=== PATIENT | female | born 1950 | race Caucasian/White ===

== ENCOUNTER 2017-01-08 23:03 | Inpatient (IN) | payer OTHER ==
[~2017-01-08] VITALS: Ht 160 cm; Wt 68.0 kg
[~2017-01-08 23:03] MED LIST: ALLE12TA PO; TRAM50 PO; ZOCO40TA PO
[2017-01-08 23:04] VITALS: BP 230/106; PULSE 70; RESP 20; TEMP 97.9; O2SAT 96
[2017-01-09] MEDS ORDERED: FLUT1INH3 INH (00:37)
[2017-01-09] MEDS ORDERED: GLUCTAB PO (00:37)
[2017-01-09] MEDS ORDERED: MONT5CHW2 CHEW (00:37)
[2017-01-09] MEDS ORDERED: CLAR10CA3 PO (00:37)
[2017-01-09] MEDS ORDERED: VITA2000 PO (00:37)
[2017-01-09] MEDS ORDERED: VENTAER INH (00:37)
--- NOTE | 2017-01-09 01:19 | PD ---
HPI Chief Complaint: Flank/Kidney Pain Time Seen by Provider: 01:16 Travel History International Travel<30 days: No Contact w/Intl Traveler<30days: No Traveled to known affect area: No History of Present Illness HPI 66-year-old female presents to the emergency department for complaint of 2 days of right flank pain radiating to the right lower quadrant associated dysuria frequency urgency and nausea. Patient rates pain 9/10 intensity. Patient denies vomiting. Patient's had no fever chills. Patient has been using Azo without symptomatically. Patient also had similar type flank pain 1 week ago but was also spontaneously. Family history of kidney stents. Patient denies any previous history of kidney stones. Patient is unable to identify exacerbating or alleviating factors. PFSH Past Medical History Narrative Medical Diabetes asthma dyslipidemia and decreased hearing tubal ligation tonsillectomy rhinoplasty; nursing notes reviewed Asthma: Yes High Cholesterol: Yes Diabetes: Yes Patient Takes Glucophage: Yes Diminished Hearing: Yes (HEARING AIDES) Menopausal: Yes Tubal Ligation: Yes Past Surgical History Tonsillectomy: Yes Other Surgery: Yes (RHINOPLASTY) Social History Alcohol Use: No Tobacco Use: No Substance Use: No Allergies-Medications (Allergen,Severity, Reaction): Coded Allergies: Sulfa (Sulfonamide Antibiotics) (Unverified Allergy, Severe, 01/08/17) diatrizoate meglumine (Unverified Allergy, Severe, TROUBLE BREATHING, SWELLING/REDNESS AT IV SIGHT, 01/08/17) gadobenic acid (Unverified Allergy, Severe, TROUBLE BREATHING, SWELLING/ REDNESS AT IV SIGHT, 01/08/17) gadodiamide (Unverified Allergy, Severe, TROUBLE BREATHING, SWELLING/ REDNESS AT IV SIGHT, 01/08/17) gadoteridol (Unverified Allergy, Severe, TROUBLE BREATHING, SWELLING/ REDNESS AT IV SIGHT, 01/08/17) iodixanol (Unverified Allergy, Severe, TROUBLE BREATHING, SWELLING/ REDNESS AT IV SIGHT, 01/08/17) iohexol (Unverified Allergy, Severe, TROUBLE BREATHING, SWELLING/REDNESS AT IV SIGHT, 01/08/17) lisinopril (Verified Allergy, Severe, Shortness of Breath, 01/09/17) povidone-iodine (Unverified Allergy, Severe, SWELLING AND ITCHING, 01/08/17 ) codeine (Unverified Allergy, Mild, N/V, 01/08/17) latex (Unverified Adverse Reaction, Severe, Anaphylaxis, 01/08/17) Uncoded Allergies: STATIN DRUGS (Adverse Reaction, Mild, LEG PAIN, 01/09/17) Reported Meds & Prescriptions Reported Meds & Active Scripts Active Reported Ventolin Hfa 18 GM Inh (Albuterol Sulfate) 90 Mcg/Act Aer 2 Puff INH Q4H PRN Vitamin D3 (Cholecalciferol) 2,000 Unit Cap 2,000 Units PO DAILY Singulair (Montelukast Sodium) 5 Mg Chew 5 Mg CHEW HS Arnuity Ellipta (Fluticasone Furoate (Inhalatio) 100 Mcg/Act Inh 1 Puff INH DAILY Claritin (Loratadine) 10 Mg Cap 10 Mg PO DAILY Glucophage XR (Metformin HCl) 500 Mg Jensen 500 Mg PO DAILY With evening meal Review of Systems Except as stated in HPI: all other systems reviewed are Neg General / Constitutional: No: Fever, Chills HENT: No: Congestion Cardiovascular: No: Chest Pain or Discomfort Gastrointestinal: Positive: Nausea, Abdominal Pain (suprapubic), No: Vomiting, Diarrhea Genitourinary: Positive: Dysuria, Flank Pain Musculoskeletal: No: Myalgias, Arthralgias Skin: No Rash Neurologic: No: Weakness Psychiatric: No: Anxiety Hematologic/Lymphatic: No: Lymph Node Enlargement Physical Exam Narrative GENERAL: Well-developed well-nourished female in acute distress no respiratory distress SKIN: Warm and dry. HEAD: Normocephalic. EYES: No scleral icterus. No injection or drainage. NECK: Supple, trachea midline. No JVD or lymphadenopathy. CARDIOVASCULAR: Regular rate and rhythm without murmurs, gallops, or rubs. RESPIRATORY: Breath sounds equal bilaterally. No accessory muscle use. GASTROINTESTINAL: Abdomen soft, mild suprapubic tenderness to palpation without guarding or rebound, nondistended. MUSCULOSKELETAL: No cyanosis, or edema. BACK: Nontender without obvious deformity. Right-sided CVA tenderness. Data Data Last Documented VS Vital Signs Date Time Temp Pulse Resp B/P (MAP) Pulse Ox O2 Delivery O2 Flow Rate FiO2 01/09/17 00:29 18 01/08/17 23:04 97.9 70 230/106 (147) 96 Orders Orders Complete Blood Count With Diff (01/09/17 01:16) Basic Metabolic Panel (Bmp) (01/09/17 01:16) Urinalysis - C+S If Indicated (01/09/17 01:16) Ct Abd/Pel W/O Iv Contrast (01/09/17 01:16) Ecg Monitoring (01/09/17 01:16) Iv Access Insert/Monitor (01/09/17 01:16) Ketorolac Inj (Toradol Inj) (01/09/17 01:30) Ondansetron Inj (Zofran Inj) (01/09/17 01:30) Sodium Chloride 0.9% Flush (Ns Flush) (01/09/17 01:30) Urine Culture (01/09/17 01:30) Ceftriaxone Inj (Rocephin Inj) (01/09/17 02:45) Admit Order (Ed Use Only) (01/09/17 ) ^ Saline Lock (01/09/17 02:45) Resp Oxygen Leif C Titrat 1-4 L (01/09/17 ) Notify Dr: Other (01/09/17 02:45) Sodium Chloride 0.9% Flush (Ns Flush) (01/09/17 09:00) Sodium Chloride 0.9% Flush (Ns Flush) (01/09/17 02:45) Consult Urology (01/09/17 02:45) Labs Laboratory Tests Test 01/09/17 01:30 White Blood Count 20.0 TH/MM3 Red Blood Count 5.31 MIL/MM3 Hemoglobin 15.8 GM/DL Hematocrit 47.9 % Mean Corpuscular Volume 90.3 FL Mean Corpuscular Hemoglobin 29.7 PG Mean Corpuscular Hemoglobin Concent 32.9 % Red Cell Distribution Width 13.5 % Platelet Count 349 TH/MM3 Mean Platelet Volume 8.1 FL Neutrophils (%) (Auto) 89.6 % Lymphocytes (%) (Auto) 5.8 % Monocytes (%) (Auto) 4.0 % Eosinophils (%) (Auto) 0.1 % Basophils (%) (Auto) 0.5 % Neutrophils # (Auto) 18.0 TH/MM3 Lymphocytes # (Auto) 1.2 TH/MM3 Monocytes # (Auto) 0.8 TH/MM3 Eosinophils # (Auto) 0.0 TH/MM3 Basophils # (Auto) 0.1 TH/MM3 CBC Comment DIFF FINAL Differential Comment Urine Color DARK-BROWN Urine Turbidity HAZY Urine pH 5.5 Urine Specific [place] 1.020 Urine Protein TRACE mg/dL Urine Glucose (UA) NEG mg/dL Urine Ketones NEG mg/dL Urine Occult Blood TRACE Urine Nitrite POS Urine Bilirubin NEG Urine Urobilinogen 2.0 MG/DL Urine Leukocyte Esterase NEG Urine RBC 10 /hpf Urine WBC 1 /hpf Urine Calcium Oxalate Crystals MANY /hpf Urine Mucus FEW /lpf Microscopic Urinalysis Comment CULTURE INDICATED Blood Urea Nitrogen 18 MG/DL Creatinine 0.93 MG/DL Random Glucose 154 MG/DL Calcium Level 10.0 MG/DL Sodium Level 138 MEQ/L Potassium Level 3.9 MEQ/L Chloride Level 102 MEQ/L Carbon Dioxide Level 25.0 MEQ/L Anion Gap 11 MEQ/L Estimat Glomerular Filtration Rate 60 ML/MIN MDM Medical Decision Making Medical Screen Exam Complete: Yes Emergency Medical Condition: Yes Medical Record Reviewed: Yes Interpretation(s) Last Impressions Abdomen/Pelvis CT 01/09/17 0116 Signed Impressions: Service Date/Time: , January 09, 2017 01:40 - CONCLUSION: 1. There is right-sided obstructive uropathy with 3 mm calculus at right ureterovesical junction and mild right-sided hydronephrosis. Nonobstructing left renal calculus. Erickson Finley MD CBC & BMP Diagram 01/09/17 01:30 Calcium Level 10.0 Vital Signs Date Time Temp Pulse Resp B/P (MAP) Pulse Ox O2 Delivery O2 Flow Rate FiO2 01/09/17 00:29 18 01/08/17 23:04 97.9 70 20 230/106 (147) 96 Differential Diagnosis Renal colic pyelonephritis UTI colitis atypical diverticulitis appendicitis Narrative Course IV access obtained specimens collected and sent for resulting patient administered Toradol 30 mg IV and Zofran [address] abdomen and pelvis performed Patient noted to have leukocytosis of 20,000 however afebrile heart rate not elevated respiratory rate not elevated does not meet SIRS criteria at this time Urinalysis noted to have positive nitrites only 1 WBC and no bacteria however culture is indicated possible UTI/risk for obstructive uropathy with pyelonephritis therefore blood cultures obtained patient administered Rocephin 1 g IV piggyback Patient's case discussed with on-call urology recommends admission will see patient in consultation Patient's case discussed with on-call [facility] request patient be admitted to Dr. Parker Patient resting comfortably voicing no concerns or complaints patient also administered IV fluids Sepsis Criteria SIRS Criteria (2 or more): WBC > 68897, < 4000 or > 10% bands Physician Communication Physician Communication Patient discussed with Dr. Cantu on-call urology; patient's case discussed with on-call Dr. Au request patient to be admitted to Dr. Parker Diagnosis Primary Impression: Obstructive uropathy Additional Impressions: Abnormal urinalysis Diabetes Admitting Information Admitting Physician Requests: Observation Enid Carrillo MD Jan 09, 2017 01:19
[2017-01-09] MEDS ORDERED: KETOROLAC TROMETHAMINE 30 MG/ML (IVP) VIAL IVP ONE (01:30)
[2017-01-09] MEDS ORDERED: SODIUM CHLORIDE 0.9% FLUSH 10 ML FLUSH IVF PRN ×2 (01:30→02:45)
[2017-01-09] MEDS ORDERED: ONDANSETRON HCL 4 MG/2 ML VIAL IVP ONE (01:30)
[2017-01-09 01:45] LABS: BLOOD, URINE TRACE (NEG); CALCIUM OXALATE CRYSTALS,URINE MANY /hpf; COMMENT (UR) CULTURE INDICATED; CULTURE IF INDICATED CULTURE INDICATED; GLUCOSE,URINE NEG (NEG); KETONE, URINE NEG (NEG); MUCUS URINE FEW /lpf (OCC); NITRITE,URINE POS (NEG); PH, URINE 5.5 (5.0-8.5)
[2017-01-09 01:46] LABS: URINE COLOR DARK-BROWN (YELLW/STRAW)
[2017-01-09 01:51] LABS: BASOPHIL # 0.1 TH/MM3 (0-0.2); BASOPHIL % 0.5 % (0.0-2.0); EOSINOPHIL % 0.1 % (0.0-4.0); HEMATOCRIT 47.9 % (35.0-46.0); HEMO FLAGS DIFF FINAL; LYMPH % 5.8 % (9.0-44.0); LYMPHOCYTE # 1.2 TH/MM3 (1.0-4.8); MEAN CELL VOLUME 90.3 FL (80.0-100.0); MEAN CORPUSCULAR HEMOGLOBIN 29.7 PG (27.0-34.0); MEAN CORPUSCULAR HGB CONC 32.9 % (32.0-36.0); NEUT % 89.6 % (16.0-70.0); PLATELET COUNT 349 TH/MM3 (150-450); RED BLOOD COUNT 5.31 MIL/MM3 (4.00-5.30); RED CELL DISTRIBUTION WIDTH 13.5 % (11.6-17.2)
--- NOTE | 2017-01-09 01:59 | RADRPT ---
EXAM DATE/TIME: 01/09/2017 01:40 [facility] COMPARISON: No previous studies available for comparison. INDICATIONS : Right flank pain and dysuria. ORAL CONTRAST: No oral contrast ingested. RADIATION DOSE: 8.49 CTDIvol (mGy) MEDICAL HISTORY : Diabetes. SURGICAL HISTORY : Tubal ligation. ENCOUNTER: Initial ACUITY: 1 day PAIN SCALE: 7/10 LOCATION: Right flank TECHNIQUE: Volumetric scanning of the abdomen and pelvis was performed. Using automated exposure control and ad justment of the mA and/or kV according to patient size, radiation dose was kept as low as reasonably achievable to obtain optimal diagnostic quality images. DICOM format image data is available electro nically for review and comparison. FINDINGS: There is a small approximately 3 mm calculus at the right ureterovesical junction with right-sided ob structive uropathy, mild hydronephrosis and ureteral dilatation. There is a nonobstructing calculus m id pole left kidney measuring about 8 mm x 4 mm. Lung bases demonstrate linear atelectasis or scarring. Mild fatty liver. Spleen, adrenals and pancrea s unremarkable. No calcified gallstones or biliary ductal dilatation. No free fluid. No bowel obstruction. No adenopathy. CONCLUSION: 1. There is right-sided obstructive uropathy with 3 mm calculus at right ureterovesical junction and mild right-sided hydronephrosis. Nonobstructing left renal calculus. Erickson Finley MD on January 09, 2017 at 1:52 Board Certified Radiologist. This report was verified electronically.
[2017-01-09 02:08] LABS: POTASSIUM 3.9 MEQ/L (3.5-5.1)
[2017-01-09] MEDS ORDERED: cefTRIAXone INJ 1,000 MG in SODIUM CHLORIDE 0.9% INJ 100 ML IV ONE (02:45)
[2017-01-09 03:02] VITALS: BP 136/72
[2017-01-09] MEDS ORDERED: SODIUM CHLOR 0.9% 1000 ML INJ 1,000 ML IV SCH (04:15)
[2017-01-09 07:00] VITALS: BP 145/72; PULSE 80; RESP 16; TEMP 97.8; O2SAT 95
[2017-01-09] MEDS ORDERED: LORATADINE 10 MG TAB PO SCH (09:00)
[2017-01-09] MEDS ORDERED: ACETAMINOPHEN 325 MG TAB PO PRN (09:00)
[2017-01-09] MEDS ORDERED: FLUTICASONE FUROATE INH SCH (09:00)
[2017-01-09] MEDS ORDERED: ONDANSETRON HCL 4 MG/2 ML VIAL IV PRN (09:00)
[2017-01-09] MEDS ORDERED: SODIUM CHLORIDE 0.9% FLUSH 10 ML FLUSH IV FLUSH SCH (09:00)
[2017-01-09] MEDS ORDERED: ALBUTEROL SULFATE 90 MCG/ACT HFA 8 GM INHALER INH PRN (09:00)
--- NOTE | 2017-01-09 09:40 | PD.CONS ---
HPI Service Urology Consult Requested By Primary Care Physician Amina Aquino MD Diagnosis: History of Present Illness 66-year-old female presents with acute onset of right sided flank pain associated with some nausea. CT scan emergency room demonstrated a 3 mm right UVJ stone with moderate right hydronephrosis with some perinephric stranding. She denies any fever or chills. She denies any prior history of stones. Furthermore the CAT scan also demonstrates a 8 mm nonobstructing left renal stone. Her medical history includes diabetes mellitus. Review of Systems ROS Limitations: Clinical Condition Constitutional: DENIES: Diaphoretic episodes Endocrine: DENIES: Abnorml menstrual pattern Eyes: DENIES: Blurred vision Ears, nose, mouth, throat: DENIES: Tinnitus Respiratory: DENIES: Apneas Cardiovascular: DENIES: Chest pain Gastrointestinal: COMPLAINS OF: Nausea Genitourinary: DENIES: Abnormal vaginal bleeding Musculoskeletal: DENIES: Joint pain Integumentary: DENIES: Abnormal pigmentation Hematologic/lymphatic: DENIES: Bruising Immunologic/allergic: DENIES: Eczema Neurologic: DENIES: Abnormal gait Psychiatric: DENIES: Anxiety Past Family Social History Past Medical History Diabetes mellitus Past Surgical History Tubal ligation Allergies: Coded Allergies: Sulfa (Sulfonamide Antibiotics) (Unverified Allergy, Severe, 01/08/17) diatrizoate meglumine (Unverified Allergy, Severe, TROUBLE BREATHING, SWELLING/REDNESS AT IV SIGHT, 01/08/17) gadobenic acid (Unverified Allergy, Severe, TROUBLE BREATHING, SWELLING/ REDNESS AT IV SIGHT, 01/08/17) gadodiamide (Unverified Allergy, Severe, TROUBLE BREATHING, SWELLING/ REDNESS AT IV SIGHT, 01/08/17) gadoteridol (Unverified Allergy, Severe, TROUBLE BREATHING, SWELLING/ REDNESS AT IV SIGHT, 01/08/17) iodixanol (Unverified Allergy, Severe, TROUBLE BREATHING, SWELLING/ REDNESS AT IV SIGHT, 01/08/17) iohexol (Unverified Allergy, Severe, TROUBLE BREATHING, SWELLING/REDNESS AT IV SIGHT, 01/08/17) lisinopril (Verified Allergy, Severe, Shortness of Breath, 01/09/17) povidone-iodine (Unverified Allergy, Severe, SWELLING AND ITCHING, 01/08/17 ) codeine (Unverified Allergy, Mild, N/V, 01/08/17) latex (Unverified Adverse Reaction, Severe, Anaphylaxis, 01/08/17) Uncoded Allergies: STATIN DRUGS (Adverse Reaction, Mild, LEG PAIN, 01/09/17) Family History Daughter with history of stones Social History Presently denies smoking or drinking. No history of illicit drug use is noted. Physical Exam Vital Signs Date Time Temp Pulse Resp B/P (MAP) Pulse Ox O2 Delivery O2 Flow Rate FiO2 01/09/17 08:13 21 01/09/17 07:00 80 16 01/09/17 07:00 97.8 80 16 145/72 (96) 95 Room Air 01/09/17 03:45 21 01/09/17 03:02 136/72 (93) 01/09/17 00:29 18 01/08/17 23:04 97.9 70 20 230/106 (147) 96 Physical Exam GENERAL: This is a well-nourished, well-developed patient, in no apparent distress. SKIN: No rashes, ecchymoses or lesions. Cool and dry. HEAD: Atraumatic. Normocephalic. No temporal or scalp tenderness. EYES: Pupils equal round and reactive. Extraocular motions intact. No scleral icterus. No injection or drainage. ENT: Nose without bleeding, purulent drainage or septal hematoma. Throat without erythema, tonsillar hypertrophy or exudate. Uvula midline. Airway patent. NECK: Trachea midline. No JVD or lymphadenopathy. Supple, nontender, no meningeal signs. CARDIOVASCULAR: Regular rate and rhythm without murmurs, gallops, or rubs. RESPIRATORY: Clear to auscultation. Breath sounds equal bilaterally. No wheezes , rales, or rhonchi. GASTROINTESTINAL: Abdomen soft, non-tender, nondistended. No hepato-splenomegaly , or palpable masses. No guarding. Mild right CVA tenderness is noted. GENITOURINARY: Normal female external genitalia MUSCULOSKELETAL: Extremities without clubbing, cyanosis, or edema. No joint tenderness, effusion, or edema noted. No calf tenderness. Negative Homans sign bilaterally. NEUROLOGICAL: Awake and alert. Cranial nerves II through XII intact. Motor and sensory grossly within normal limits. Five out of 5 muscle strength in all muscle groups. Normal speech. Laboratory Tests Test 01/09/17 01:30 White Blood Count 20.0 Red Blood Count 5.31 Hemoglobin 15.8 Hematocrit 47.9 Mean Corpuscular Volume 90.3 Mean Corpuscular Hemoglobin 29.7 Mean Corpuscular Hemoglobin Concent 32.9 Red Cell Distribution Width 13.5 Platelet Count 349 Mean Platelet Volume 8.1 Neutrophils (%) (Auto) 89.6 Lymphocytes (%) (Auto) 5.8 Monocytes (%) (Auto) 4.0 Eosinophils (%) (Auto) 0.1 Basophils (%) (Auto) 0.5 Neutrophils # (Auto) 18.0 Lymphocytes # (Auto) 1.2 Monocytes # (Auto) 0.8 Eosinophils # (Auto) 0.0 Basophils # (Auto) 0.1 CBC Comment DIFF FINAL Differential Comment Urine Color DARK-BROWN Urine Turbidity HAZY Urine pH 5.5 Urine Specific [place] 1.020 Urine Protein TRACE Urine Glucose (UA) NEG Urine Ketones NEG Urine Occult Blood TRACE Urine Nitrite POS Urine Bilirubin NEG Urine Urobilinogen 2.0 Urine Leukocyte Esterase NEG Urine RBC 10 Urine WBC 1 Urine Calcium Oxalate Crystals MANY Urine Mucus FEW Microscopic Urinalysis Comment CULTURE INDICATED Blood Urea Nitrogen 18 Creatinine 0.93 Random Glucose 154 Calcium Level 10.0 Sodium Level 138 Potassium Level 3.9 Chloride Level 102 Carbon Dioxide Level 25.0 Anion Gap 11 Estimat Glomerular Filtration Rate 60 Date/Time Source Procedure Growth Status 01/09/17 03:15 Blood Peripheral Aerobic Blood Culture Pending Received 01/09/17 03:15 Blood Peripheral Anaerobic Blood Culture Pending Received 01/09/17 01:30 Urine Random Urine Urine Culture Pending Worksheet Result Diagram: 01/09/17 0130 01/09/17 0130 Imaging Last Impressions Abdomen/Pelvis CT 01/09/17 0116 Signed Impressions: Service Date/Time: December 01:40 - CONCLUSION: 1. There is right-sided obstructive uropathy with 3 mm calculus at right ureterovesical junction and mild right-sided hydronephrosis. Nonobstructing left renal calculus. Erickson Finley MD Assessment and Plan Assessment and Plan 66-year-old female with 3 mm right UVJ calculus causing mild to moderate hydronephrosis with some mild perinephric stranding. Patient presently comfortable without nausea and pain is controlled. Recommend discharge at this time. Patient will need antibiotics, pain medicine and antiemetics at the time of discharge Patient will need a follow-up in the office in a few weeks and to be scheduled for treatment of her left renal calculus which is 8 x 4 mm in size. Thank you for the consult allow me to participate in care of this patient. Ike Cantu DO Jan 09, 2017 09:40
[2017-01-09] MEDS ORDERED: KETO10 PO ×2 (09:52→10:16)
[2017-01-09] MEDS ORDERED: LEVO750T3 PO ×2 (09:52→10:00)
--- NOTE | 2017-01-09 10:19 | HHI.HP ---
HPI Service [facility] Hospitalists Primary Care Physician Amina Aquino MD Admission Diagnosis obstructive uropathy w/ uti; DM Chief Complaint: Right flank pain Travel History International Travel<30 Days: No Contact w/Intl Traveler <30 Da: No Traveled to Known Affected Are: No History of Present Illness Ms. Valdez is a pleasant 66 y/o female with diabetes mellitus who presented to the ED last night with worsening right flank pain and some nausea. She states that she started having some urinary symptoms with urgency and frequency and malodorous urine, around 3-4 days ago and started using AZO. Then yesterday evening she began having worsening right sided flank pain with radiation into the right groin area and associated with some nausea. This prompted her to go to the ED for further evaluation. Labs at admission noted an elevated WBC count of 20,000. CT scan Abd/pelvis revealed a 3 mm right UVJ stone with moderate right hydronephrosis with some perinephric stranding and an 8 mm nonobstructing left renal stone. She denies any fever or chills. She denies any prior history of kidney stones. She was given IVF, Toradol IV and Ceftriaxone in the ED. Pt overall feels better today. She was seen by Urology this morning who has cleared the patient for discharge with antibiotics, pain medication and antiemetics. Pt was recommended to followup with Dr. Cantu in 1 week for re-evaluation. Review of Systems Constitutional: DENIES: Fever, Chills, Night Sweats Respiratory: DENIES: Shortness of breath Cardiovascular: DENIES: Chest pain, Lower Extremity Edema Gastrointestinal: COMPLAINS OF: Abdominal pain, Nausea, DENIES: Constipation, Diarrhea, Vomiting Genitourinary: COMPLAINS OF: Urinary frequency, Urgency, Dysuria Musculoskeletal: COMPLAINS OF: Back pain Integumentary: DENIES: Rash Neurologic: DENIES: Headache Psychiatric: DENIES: Confusion Past Family Social History Past Medical History Diabetes mellitus Asthma Allergies Dyslipidemia Decreased hearing Past Surgical History Tubal ligation Tonsillectomy Rhinoplasty Reported Medications Ventolin Hfa 18 GM Inh (Albuterol Sulfate) 90 Mcg/Act Aer 2 Puff INH Q4H PRN Vitamin D3 (Cholecalciferol) 2,000 Unit Cap 2,000 Units PO DAILY Singulair (Montelukast Sodium) 5 Mg Chew 5 Mg CHEW HS Arnuity Ellipta (Fluticasone Furoate (Inhalatio) 100 Mcg/Act Inh 1 Puff INH DAILY Claritin (Loratadine) 10 Mg Cap 10 Mg PO DAILY Glucophage XR (Metformin HCl) 500 Mg Jensen 500 Mg PO DAILY With evening meal Allergies: Coded Allergies: Sulfa (Sulfonamide Antibiotics) (Unverified Allergy, Severe, 01/08/17) diatrizoate meglumine (Unverified Allergy, Severe, TROUBLE BREATHING, SWELLING/REDNESS AT IV SIGHT, 01/08/17) gadobenic acid (Unverified Allergy, Severe, TROUBLE BREATHING, SWELLING/ REDNESS AT IV SIGHT, 01/08/17) gadodiamide (Unverified Allergy, Severe, TROUBLE BREATHING, SWELLING/ REDNESS AT IV SIGHT, 01/08/17) gadoteridol (Unverified Allergy, Severe, TROUBLE BREATHING, SWELLING/ REDNESS AT IV SIGHT, 01/08/17) iodixanol (Unverified Allergy, Severe, TROUBLE BREATHING, SWELLING/ REDNESS AT IV SIGHT, 01/08/17) iohexol (Unverified Allergy, Severe, TROUBLE BREATHING, SWELLING/REDNESS AT IV SIGHT, 01/08/17) lisinopril (Verified Allergy, Severe, Shortness of Breath, 01/09/17) povidone-iodine (Unverified Allergy, Severe, SWELLING AND ITCHING, 01/08/17 ) codeine (Unverified Allergy, Mild, N/V, 01/08/17) latex (Unverified Adverse Reaction, Severe, Anaphylaxis, 01/08/17) Uncoded Allergies: STATIN DRUGS (Adverse Reaction, Mild, LEG PAIN, 01/09/17) Family History Noncontributory Social History Denies any alcohol, tobacco or illicit drug use Physical Exam Vital Signs Vital Signs Date Time Temp Pulse Resp B/P (MAP) Pulse Ox O2 Delivery O2 Flow Rate FiO2 01/09/17 08:13 21 01/09/17 07:00 80 16 01/09/17 07:00 97.8 80 16 145/72 (96) 95 Room Air 01/09/17 03:45 21 01/09/17 03:02 136/72 (93) 01/09/17 00:29 18 01/08/17 23:04 97.9 70 20 230/106 (147) 96 Physical Exam GENERAL: This is a well-nourished, well-developed patient, in no apparent distress. HEENT: Atraumatic. Normocephalic. No temporal or scalp tenderness. No scleral icterus. Airway patent. NECK: Trachea midline, supple, nontender. CARDIO: Regular. RESP: CTA bilaterally. No wheezes, rales, or rhonchi. ABD: +BS, soft, non-tender, nondistended. Mild right flank CVA tenderness EXT: Extremities without clubbing, cyanosis, or edema. NEURO: Awake and alert. Motor and sensory grossly within normal limits. Normal speech. Laboratory Laboratory Tests Test 01/09/17 01:30 White Blood Count 20.0 Red Blood Count 5.31 Hemoglobin 15.8 Hematocrit 47.9 Mean Corpuscular Volume 90.3 Mean Corpuscular Hemoglobin 29.7 Mean Corpuscular Hemoglobin Concent 32.9 Red Cell Distribution Width 13.5 Platelet Count 349 Mean Platelet Volume 8.1 Neutrophils (%) (Auto) 89.6 Lymphocytes (%) (Auto) 5.8 Monocytes (%) (Auto) 4.0 Eosinophils (%) (Auto) 0.1 Basophils (%) (Auto) 0.5 Neutrophils # (Auto) 18.0 Lymphocytes # (Auto) 1.2 Monocytes # (Auto) 0.8 Eosinophils # (Auto) 0.0 Basophils # (Auto) 0.1 CBC Comment DIFF FINAL Differential Comment Urine Color DARK-BROWN Urine Turbidity HAZY Urine pH 5.5 Urine Specific [place] 1.020 Urine Protein TRACE Urine Glucose (UA) NEG Urine Ketones NEG Urine Occult Blood TRACE Urine Nitrite POS Urine Bilirubin NEG Urine Urobilinogen 2.0 Urine Leukocyte Esterase NEG Urine RBC 10 Urine WBC 1 Urine Calcium Oxalate Crystals MANY Urine Mucus FEW Microscopic Urinalysis Comment CULTURE INDICATED Blood Urea Nitrogen 18 Creatinine 0.93 Random Glucose 154 Calcium Level 10.0 Sodium Level 138 Potassium Level 3.9 Chloride Level 102 Carbon Dioxide Level 25.0 Anion Gap 11 Estimat Glomerular Filtration Rate 60 Date/Time Source Procedure Growth Status 01/09/17 03:15 Blood Peripheral Aerobic Blood Culture Pending Received 01/09/17 03:15 Blood Peripheral Anaerobic Blood Culture Pending Received 01/09/17 01:30 Urine Random Urine Urine Culture Pending Worksheet Result Diagram: 01/09/17 0130 01/09/17 0130 Imaging Last Impressions Abdomen/Pelvis CT 01/09/17 0116 Signed Impressions: Service Date/Time: December 01:40 - CONCLUSION: 1. There is right-sided obstructive uropathy with 3 mm calculus at right ureterovesical junction and mild right-sided hydronephrosis. Nonobstructing left renal calculus. Erickson Finley MD Septic Shock Reassessment Heart: Regular rate and rhythm Lungs: Clear Skin: Warm Caprini VTE Risk Assessment Caprini VTE Risk Assessment: Mod/High Risk (score >= 2) Caprini Risk Assessment Model Point Value = 1 Point Value = 2 Point Value = 3 Point Value = 5 Age 41-60 Minor surgery BMI > 25 kg/m2 Swollen legs Varicose veins or History of unexplained or recurrent spontaneous Oral contraceptives or hormone replacement Sepsis (< 1 month) Serious lung disease, including pneumonia (< 1 month) Abnormal pulmonary function Acute myocardial infarction Congestive heart failure (< 1 month) History of inflammatory bowel disease Medical patient at bed rest Age 61-74 Arthroscopic surgery Major open surgery (> 45 min) Laparoscopic surgery (> 45 min) Malignancy Confined to bed (> 72 hours) Immobilizing plaster cast Central venous access Age >= 75 History of VTE Family history of VTE Factor V Leiden Prothrombin [id number] Lupus anticoagulant Anticardiolipin antibodies Elevated serum homocysteine Heparin-induced thrombocytopenia Other congenital or acquired thrombophilia Stroke (< 1 month) Elective arthroplasty Hip, pelvis, or leg fracture Acute spinal cord injury (< 1 month) Prophylaxis Regimen Total Risk Factor Score Risk Level Prophylaxis Regimen 0-1 Low Early ambulation 2 Moderate Order ONE of the following: *Sequential Compression Device (SCD) *Heparin 5000 units SQ BID 3-4 Higher Order ONE of the following medications: *Heparin 5000 units SQ TID *Enoxaparin/Lovenox 40 mg SQ daily (WT < 150 kg, CrCl > 30 mL/min) *Enoxaparin/Lovenox 30 mg SQ daily (WT < 150 kg, CrCl > 10-29 mL/min) *Enoxaparin/Lovenox 30 mg SQ BID (WT < 150 kg, CrCl > 30 mL/min) AND/OR *Sequential Compression Device (SCD) 5 or more Highest Order ONE of the following medications: *Heparin 5000 units SQ TID (Preferred with Epidurals) *Enoxaparin/Lovenox 40 mg SQ daily (WT < 150 kg, CrCl > 30 mL/min) *Enoxaparin/Lovenox 30 mg SQ daily (WT < 150 kg, CrCl > 10-29 mL/min) *Enoxaparin/Lovenox 30 mg SQ BID (WT < 150 kg, CrCl > 30 mL/min) AND *Sequential Compression Device (SCD) Assessment and Plan Problem List: (1) Obstructive uropathy ICD Codes: N13.9 - Obstructive and reflux uropathy, unspecified Status: Acute Plan: - Pt is a 66 y/o female with diabetes mellitus and asthma who presented to the ED last night with worsening right flank pain and some nausea. - She started having some urinary symptoms with urgency and frequency and malodorous urine, around 3-4 days ago and started using AZO. Then yesterday evening she began having worsening right sided flank pain with radiation into the right groin area and associated with some nausea. - Labs at admission noted an elevated WBC count of 20,000. - CT scan Abd/pelvis revealed a 3 mm right UVJ stone with moderate right hydronephrosis with some perinephric stranding and an 8 mm nonobstructing left renal stone. - She was given IVF, Toradol IV and Ceftriaxone in the ED. - Pt overall feels better today. - She was seen by Urology this morning who has cleared the patient for discharge with antibiotics, pain medication. - Pt was recommended to followup with Dr. Cantu in 1 week for re-evaluation. - Discussed with the patient either going home with prescriptions for antibiotics and pain control vs. staying for 24 hour observation and continuing on IVF, antibiotics and pain control. Pt would prefer to go home - She will be discharged on Levaquin 750mg po daily x 7 days - Pt requesting a prescription for Ketorolac 10mg Q6H PRN pain x 10 pills - Discussed with her making sure to drink plenty of fluids to continue to keep the kidneys flushed. - She is to followup with her PCP, Dr. Amina Aquino in 1 week as well. (2) Pyelonephritis ICD Codes: N12 - Tubulo-interstitial nephritis, not specified as acute or chronic Status: Acute Plan: - See above. (3) Diabetes ICD Codes: E11.9 - Type 2 diabetes mellitus without complications Status: Chronic Plan: - Pt will continue her home meds upon discharge. Assessment and Plan Patient examined. Assessment and plan formulated with Ellie Omalley PA-C. I agree with the above. right obstructive nephrolithiasis. 3mm. mild hydro and perinephric stranding with possible pylo uti. f/u urology. strainer given. abx/pain meds. cx pending. also has a stone on the left to be evaluated by urology. Problem Qualifiers (1) Diabetes: Ellie Omalley Jan 09, 2017 10:19 Wili Parker MD Jan 09, 2017 13:44
[2017-01-09] MEDS ORDERED: INSULIN ASPART SUPPLEMENTAL SCALE SQ SCH (11:00)
[2017-01-09 11:20] VITALS: BP 145/63
[2017-01-09] MEDS ORDERED: MONTELUKAST SODIUM 5 MG CHEWABLE TAB CHEW SCH (21:00)
[2017-01-10] MEDS ORDERED: cefTRIAXone INJ 1,000 MG in SODIUM CHLORIDE 0.9% INJ 100 ML IV SCH (02:00)
[2017-01-13] MEDS ORDERED: [UNRECOGNIZED DRUG - OTHER] PO (08:59)
[2017-01-13] MEDS ORDERED: PERC2.5T PO (09:37)
[2017-01-13] MEDS ORDERED: ZOFR4TAB PO (09:37)
== END 2017-01-09 16:00 | disposition home or self-care (01) | DRG 690 ==
LOC: NEPC 23:03 → NEDA 01-09 02:49
PROVIDERS: ADMIT Hospitalist; ATTEND Hospitalist
DX: N13.6 Pyonephrosis (principal); E11.9 Type 2 diabetes mellitus without complications; E78.5 Hyperlipidemia, unspecified; J45.909 Unspecified asthma, uncomplicated; Z79.84 Long term (current) use of oral hypoglycemic drugs; Z88.5 Allergy status to narcotic agent; Z88.2 Allergy status to sulfonamides; Z88.8 Allergy status to other drugs, medicaments and biological substances; Z91.040 Latex allergy status
CPT/HCPCS: 74176; 80048; 81001; 85025; 87040; 87086; 96374; 96375; 99285; J0696; J1885; J2405; J7030

== ENCOUNTER → 2017-01-15 | Day surgery (SDC) | payer OTHER ==
[~2017-01-15] VITALS: Ht 160 cm; Wt 69.2 kg
[~2017-01-15] MED LIST changes: +ACETAMINOPHEN 1000 MG/100 ML 100 ML IV ONE; -ALLE12TA PO; +CHLORHEXIDINE GLUCONATE 2 % 1 PACK (2 CLOTHS) TOPICAL PRN; +CLAR10CA3 PO; +DEXAMETHASONE SOD PHOS 4 MG/ML VIAL ONE; +FLUT1INH3 INH; +GLUCTAB PO; +INSULIN HUMAN REGULAR 1,000 UNITS/10 ML VIAL SQ PRN; +KETO10 PO; +LACTATED RINGER'S 1000 ML IV PRN; +LEVO750T3 PO; +METOPROLOL TARTRATE 25 MG TAB PO PRN; +MIDAZOLAM HCL 2 MG/2 ML VIAL ONE; +MONT5CHW2 CHEW; +ONDANSETRON HCL 4 MG/2 ML VIAL IV PUSH ONE; +PERC2.5T PO; +PHENYLEPH/NS 1000 MCG/10 ML SYR IV ONE; +POVIDONE IODINE 5% (ANTISEPSIS KIT) 4 APPLICATIONS EACH NARE PRN; +PROPOFOL 200 MG/20 ML AMP IV ONE; +SODIUM CHLORID 0.9% 500 ML IV PRN; +SODIUM CHLORIDE 0.9% INJ 100 ML ONE; -TRAM50 PO; +VENTAER INH; +VITA2000 PO; -ZOCO40TA PO; +ZOFR4TAB PO; +ceFAZolin 1,000 MG/NS 100 ML IV SCH; +ceFAZolin INJ 1,000 MG VIAL ONE
--- NOTE | 2017-01-15 11:04 | RADRPT ---
EXAM DATE/TIME: 01/15/2017 10:08 [facility] COMPARISON: CT ABDOMEN & PELVIS W/O CONTRAST, January 09, 2017, 1:40. INDICATIONS : Pre op lithotrypsy for kidney stones MEDICAL HISTORY : Diabetes SURGICAL HISTORY : tubal ligation ENCOUNTER: Initial ACUITY: 1 day PAIN SCORE: 0/10 LOCATION: Bilateral abdomen FINDINGS: Scattered stool is present throughout the colon. There is no free air or obstruction. Stool obscure s visualization of calcifications. Degenerative changes are present in the lumbar spine. CONCLUSION: Scattered stool throughout the colon that obscures in the calcifications. Ac Bravo MD FACR on January 15, 2017 at 11:00 Board Certified Radiologist. This report was verified electronically.
--- NOTE | 2017-01-15 12:11 | PD.OP ---
Operative Report Date of Surgery: Jan 15, 2017 Preoperative Diagnosis: Left renal stone Postoperative Diagnosis: Same Procedure: Left extra corporeal shockwave lithotripsy Anesthesia: TIVA Surgeon: Ike Cantu [facility] Supervisor(s): None Resident Surgeon: None Operation and Findings: 66-year-old female presented to the emergency room earlier this week with a 3 mm distal right ureteral stone and a 7 mm left renal stone. She will pass a 3 mm stone without difficulty but was experiencing mild left-sided flank pain. Decision made to proceed with left extraportal shockwave lithotripsy to treat the 7 mm left renal stone. Risk and benefits were discussed preoperatively and she is willing to proceed. Patient is brought to the operating room and identified by myself as Lauren Valdez. She's placed on the operating room table in the supine position. She received preprocedure antibiotics and TIVA anesthesia was administered. Under fluoroscopic and ultrasonic imaging guidance the stone was visualized in the left renal collecting system. ESWL therapy commenced and the patient received a total of 2500 shocks. Good fragmentation the stone was visualized under fluoroscopic/ultrasonic imaging guidance. She tolerated the procedure well and was woken and transferred to her room in stable condition. Ike Cantu DO Jan 15, 2017 12:11
[2017-01-15 13:19] VITALS: BP 144/80; PULSE 90; RESP 18; TEMP 97.5; O2SAT 96
--- NOTE | 2017-01-15 17:10 | EKG ---
Date Performed: 01/15/2017 Time Performed: 10:14:22 PTAGE: 66 years EKG: Sinus rhythm PROBABLE INFERIOR MYOCARDIAL INFARCTION , PROBABLY OLD Since previous tracing, no significant change noted ABNORMAL ECG PREVIOUS TRACING : 05/09/2010 16.07 DOCTOR: Zofia Romero Interpretating Date/Time 01/15/2017 17:05:08
== END | disposition home or self-care (01) ==
LOC: HSDC 09:38
PROVIDERS: ATTEND Urology
DX: N20.0 Calculus of kidney (principal); R94.31 Abnormal electrocardiogram [ECG] [EKG]; Z01.810 Encounter for preprocedural cardiovascular examination
CPT/HCPCS: 00872; 50590; 74000; 93005; J0131; J0690; J1100; J2250; J2370; J2405; J3010